=== PATIENT | female | born 1950 | race Caucasian/White ===

== ENCOUNTER 2020-05-06 04:26 | Emergency (ER) | payer MEDICARE, BC ==
--- NOTE | 2020-05-06 05:43 | EDM.PDOC ---
ED HPI GENERAL MEDICAL PROBLEM - General Chief Complaint: General Stated Complaint: WEAKNESS POST DIALYSIS Time Seen by Provider: 05/06/20 05:37 Source of Information: Reports: EMS History Limitations: Reports: No Limitations - History of Present Illness INITIAL COMMENTS - FREE TEXT/NARRATIVE: Pt is IDDM on dialysis through A/V access. States she has large hematoma at left arm access and has been feeling weak over past week. She was brought in by EMS accompanied by her who states he thinks she has become anemic again and is concerned her Hgb is below 6. Onset: Gradual Onset Date: 05/01/20 Duration: Day(s): (10 days, increasing weakness), Getting Worse Location: Reports: Upper Extremity, Left Quality: Reports: Ache Severity: Mild Improves with: Reports: Cold Therapy, Immobilization Worsens with: Reports: Movement - Related Data Allergies Allergy/AdvReac Type Severity Reaction Status Date / Time peanut Allergy Mild Other Verified 03/31/20 14:14 codeine Allergy Hives Verified 03/31/20 14:14 erythromycin lactobionate Allergy Hives Verified 03/31/20 14:14 [From Erythrocin] metformin AdvReac Other Verified 03/31/20 14:14 Home Meds: Home Meds traZODone 100 mg PO BEDTIME 03/20/16 [History] Allopurinol [Zyloprim] 100 mg PO DAILY tablet 11/21/16 [Rx] Levothyroxine Sodium [Levoxyl] 200 mcg PO ACBREAKFAST 12/29/16 [History] Aspirin [Halfprin] 81 mg PO DAILY tab.ec 01/16/17 [Rx] Darbepoetin William in [place] [Aranesp] 0 - 150 mcg SUBCUT Q14D 01/16/17 [Rx] Diclofenac Sodium [Voltaren 1% Gel] 0 - 1 gm TOP QID PRN #1 tube 01/16/17 [Rx] atorvaSTATin [Lipitor] 40 mg PO BEDTIME tablet 01/16/17 [Rx] Ferrous Sulfate 325 mg PO TIDMEALS 05/27/17 [History] Fish Oil/[place]-3 Fatty Acids [Fish Oil 1,000 MG] 1,000 mg PO DAILY 05/27/17 [History] Pramipexole [Mirapex] 0.75 mg PO QPM 05/27/17 [History] Zolpidem [Ambien] 5 mg PO BEDTIME 05/27/17 [History] busPIRone [Buspar] 15 mg PO QID 05/27/17 [History] Fluticasone Propionate [Flonase] 1 spray NS BID 08/10/17 [History] LORazepam [Ativan] 0.5 mg PO TID 08/10/17 [History] Nystatin [Nystatin Crm] 15 gm TOP BID PRN 08/10/17 [History] Ondansetron [Zofran] 4 mg PO Q6H PRN 08/10/17 [History] Acetaminophen [Tylenol Arthritis Pain] 650 mg PO Q8H PRN #30 tab.er 08/24/17 [Rx] Insulin Aspart [NovoLOG] 20 unit SUBCUT TIDAC 30 Days pen 08/24/17 [Rx] Furosemide [Lasix] 40 mg PO DAILY 11/09/17 [History] Multivit with Calcium,Iron,Min [Essential Daily] 1 tab PO DAILY 11/09/17 [History] Mupirocin Oint [Bactroban Oint] 0 gm TOP TID PRN 11/09/17 [History] Albuterol Sulfate [Proair Hfa] 2 puff IH QID PRN 01/07/18 [History] Budesonide/Formoterol Fumarate [Symbicort 160-4.5 Mcg Inhaler] 2 puff IH BID PRN 01/07/18 [History] Clopidogrel [Plavix] 75 mg PO DAILY 01/07/18 [History] Insulin Degludec [Tresiba Flextouch U-100] 36 units SUBCUT BEDTIME 01/07/18 [History] Midodrine 5 mg PO ASDIRECTED PRN 01/07/18 [History] Nitroglycerin [Nitrostat] 0.4 mg SL ASDIRECTED PRN 01/07/18 [History] polyethylene glycoL 3350 [MiraLAX] 17 gm PO BID PRN 01/07/18 [History] Isosorbide Mononitrate [Imdur] 30 mg PO DAILY 05/02/18 [History] Loratadine [Claritin] 10 mg PO DAILY 05/02/18 [History] Citalopram Hydrobromide [Celexa] 20 mg PO DAILY 07/18/19 [History] Benzonatate [Tessalon Perle] 100 mg PO TID PRN #21 capsule 09/11/19 [Rx] Darbepoetin William in [place] [Aranesp] 150 mcg IJ WEEKLY 03/09/20 [History] Past Medical History HEENT History: Reports: Epistaxis, Impaired Vision, Other (See Below) Other HEENT History: photosensitive, ringing in ears- chronic, cracking in ears currently Cardiovascular History: Reports: Afib, High Cholesterol, Heart Murmur, Hypertension, [place] Respiratory History: Reports: Asthma, Other (See Below), Sleep Apnea, SOB Other Respiratory History: doesn't use CPAP because of mask doesn't work - one cased scab on nose, one cased claustraphobia uses oxygen at home Gastrointestinal History: Reports: Chronic Diarrhea, GERD, Hemorrhoids Genitourinary History: Reports: Dialysis, Diabetic Nephropathy, Other (See Below), Renal Disease, UTI, Recurrent Other Genitourinary History: home dialysis 4 days per week 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: Musculoskeletal History: Reports: Arthritis, Back Pain, Chronic, Gout, Neck Pain, Chronic, Other (See Below) Other Musculoskeletal History: chronic shoulder pain, arthritis all over Neurological History: Reports: Migraines, Vertigo Psychiatric History: Reports: Anxiety, Depression, PTSD Endocrine/Metabolic History: Reports: Diabetes, Type II, Hypothyroidism, IDDM, Obesity/BMI 30+ Hematologic History: Reports: Anemia, B12 Deficiency, Idiopathic Thrombocytopenia, Other (See Below) Other Hematologic History: antibody in blood Immunologic History: Reports: Immunosuppression Oncologic (Cancer) History: Reports: None Dermatologic History: Reports: None - Infectious Disease History Infectious Disease History: Reports: Chicken Pox, Measles, Mumps, Rubella - Past Surgical History HEENT Surgical History: Reports: Cataract Surgery, Other (See Below) Cardiovascular Surgical History: Reports: Coronary Artery Bypass, Other (See Below) GI Surgical History: Reports: Appendectomy, Cholecystectomy Female Surgical History: Reports: Tubal Ligation Social & Family History - Family History Family Medical History: Noncontributory - Caffeine Use Caffeine Use: Reports: None Other Caffeine Use: chocolate ED ROS GENERAL - Review of Systems Review Of Systems: See Below Constitutional: Reports: Malaise, Weakness, Fatigue HEENT: Reports: No Symptoms Respiratory: Reports: Shortness of Breath Cardiovascular: Reports: Lightheadedness GI/Abdominal: Reports: No Symptoms : Reports: No Symptoms Musculoskeletal: Reports: Arm Pain Skin: Reports: Bruising, Wound (left arm, large hematoma over A/V fistula access) Neurological: Reports: No Symptoms Psychiatric: Reports: No Symptoms Hematologic/Lymphatic: Reports: Anemia Immunologic: Reports: No Symptoms ED EXAM, RENAL/ - Physical Exam Exam: See Below Text/Narrative:: Pt is IDDM on dialysis per standard routine. Last dialysis yesterday. Has hematoma left arm from yesterday's A/V fistula access. Has had about a 10 day episode of increasing weakness, similar to prior admission in [place] for transfusion. Pt has an Antibody K defician General Appearance: Alert, Mild Distress, Obese Ears: Normal External Exam Nose: Normal Inspection Throat/Mouth: Normal Inspection Head: Atraumatic Neck: Normal Inspection Respiratory/Chest: No Respiratory Distress, Lungs Clear, Normal Breath Sounds Cardiovascular: Normal Peripheral Pulses GI/Abdominal: Soft Extremities: Arm Pain, Other (left uppe arm A/V fistual access, hematoma) Skin Exam: Warm, Other (large hematoma over left arm A/V fistula access) Course - Vital Signs Last Recorded V/S: Last Vital Signs Temp 98.9 F 05/06/20 09:04 Pulse 80 05/06/20 10:42 Resp 20 05/06/20 10:42 BP 125/50 L 05/06/20 10:42 Pulse Ox 97 05/06/20 10:42 - Orders/Labs/Meds Labs: Laboratory Tests 05/06/20 05/06/20 Range/Units 05:40 05:40 WBC 4.5 D (4.0-11.0) K/uL RBC 2.09 L (3.80-5.80) M/uL Hgb 6.2 L* D (11.5-16.5) g/dL Hct 19.8 L* D (37.0-47.0) % MCV 95 (76-96) fL MCH 29.7 (27.0-32.0) pg MCHC 31.3 (31.0-35.0) g/dL RDW 16.7 H (11.0-16.0) % Plt Count 81 L D (150-500) K/uL MPV 12.2 H (6.0-10.0) fL Neut % (Auto) 79.1 H (45.0-70.0) % Lymph % (Auto) 10.8 L (20.0-40.0) % [place] % (Auto) 6.8 (3.0-10.0) % Eos % (Auto) 2.9 (1.0-5.0) % Baso % (Auto) 0.4 (0.0-0.5) % Neut # (Auto) 3.58 (2.00-7.50) K/uL Lymph # (Auto) 0.49 L (1.50-4.00) K/uL [place] # (Auto) 0.31 (0.20-0.80) K/uL Eos # (Auto) 0.13 (0.04-0.40) K/uL Baso # (Auto) 0.02 (0.02-0.10) K/uL Sodium 134 L (136-145) mmol/L Potassium 4.7 (3.5-5.1) mmol/L Chloride 98 (98-107) mmol/L Carbon Dioxide 24.7 (21.0-32.0) mmol/L Anion Gap 16.0 H (5.0-15.0) mmol/L BUN 68 H* D (8-26) mg/dL Creatinine 6.10 H* (0.55-1.02) mg/dL Est Cr Clr Drug Dosing TNP Estimated GFR (MDRD) 7 L (>60) MLS/MIN BUN/Creatinine Ratio 11.1 (6-25) Glucose 293 H (74-100) mg/dL Calcium 7.7 L (8.5-10.1) mg/dL Total Bilirubin 0.4 D (0.0-1.0) mg/dL AST 14 L (15-37) U/L ALT 24 (12-78) U/L Alkaline Phosphatase 153 H (46-116) U/L Total Protein 5.5 L (6.4-8.2) g/dL Albumin 3.0 L (3.4-5.0) g/dL Globulin 2.5 (2.2-4.2) g/dL Albumin/Globulin Ratio 1.2 (0.8-2.0) Meds: Medications Discontinued Medications Generic Name Dose Route Start Last Admin Trade Name Freq PRN Reason Stop Dose Admin Sodium Chloride 500 mls @ 1,000 mls/hr 05/06/20 06:00 05/06/20 06:03 Normal Saline IV 05/06/20 06:29 1,000 mls/hr ONETIME ONE Administration Sodium Chloride 10 ml 05/06/20 05:56 05/06/20 11:20 Saline Flush FLUSH 10 ml ASDIRECTED PRN Administration Keep Vein Open Departure - Departure Time of Disposition: 11:20 Disposition: DC/Tfer to Acute Hospital 02 Condition: Poor Clinical Impression: Dialysis patient, Shortness of breath, Chronic kidney disease with end stage renal failure on dialysis Anemia Qualifiers: Anemia type: other cause Other causes of anemia: chronic disease, other Qualified Code(s): D63.8 - Anemia in other chronic diseases classified elsewhere - Discharge Information *PRESCRIPTION DRUG MONITORING PROGRAM REVIEWED*: Not Applicable *COPY OF PRESCRIPTION DRUG MONITORING REPORT IN PATIENT SUGAR: Not Applicable Referrals: PCP,None [Primary Care Provider] - Forms: Interfacility Transfer OLGA
[2020-05-06] MEDS ORDERED: Sodium Chloride 0.9% 500 ML IV ONE (06:00)
[2020-05-06] MEDS: Sodium Chloride 0.9% 10 ML Syringe FLUSH PRN ×2 (06:56→11:20)
--- NOTE | 2020-05-06 10:13 | PCM.DCSUM1 ---
Discharge Summary - Hospital Course Free Text/Narrative:: Receiving facility has a bed for patient. Ambulance called for transport. - Discharge Data Discharge Date: 05/06/20 Discharge Disposition: DC/Tfer to Acute Hospital 02 Condition: Good - Referral to Home Health Primary Care Physician: PCP None - Discharge Plan *PRESCRIPTION DRUG MONITORING PROGRAM REVIEWED*: Not Applicable *COPY OF PRESCRIPTION DRUG MONITORING REPORT IN PATIENT SUGAR: Not Applicable Home Medications: Home Meds traZODone 100 mg PO BEDTIME 03/20/16 [History] Allopurinol [Zyloprim] 100 mg PO DAILY tablet 11/21/16 [Rx] Levothyroxine Sodium [Levoxyl] 200 mcg PO ACBREAKFAST 12/29/16 [History] Aspirin [Halfprin] 81 mg PO DAILY tab.ec 01/16/17 [Rx] Darbepoetin William in [place] [Aranesp] 0 - 150 mcg SUBCUT Q14D 01/16/17 [Rx] Diclofenac Sodium [Voltaren 1% Gel] 0 - 1 gm TOP QID PRN #1 tube 01/16/17 [Rx] atorvaSTATin [Lipitor] 40 mg PO BEDTIME tablet 01/16/17 [Rx] Ferrous Sulfate 325 mg PO TIDMEALS 05/27/17 [History] Fish Oil/[place]-3 Fatty Acids [Fish Oil 1,000 MG] 1,000 mg PO DAILY 05/27/17 [History] Pramipexole [Mirapex] 0.75 mg PO QPM 05/27/17 [History] Zolpidem [Ambien] 5 mg PO BEDTIME 05/27/17 [History] busPIRone [Buspar] 15 mg PO QID 05/27/17 [History] Fluticasone Propionate [Flonase] 1 spray NS BID 08/10/17 [History] LORazepam [Ativan] 0.5 mg PO TID 08/10/17 [History] Nystatin [Nystatin Crm] 15 gm TOP BID PRN 08/10/17 [History] Ondansetron [Zofran] 4 mg PO Q6H PRN 08/10/17 [History] Acetaminophen [Tylenol Arthritis Pain] 650 mg PO Q8H PRN #30 tab.er 08/24/17 [Rx] Insulin Aspart [NovoLOG] 20 unit SUBCUT TIDAC 30 Days pen 08/24/17 [Rx] Furosemide [Lasix] 40 mg PO DAILY 11/09/17 [History] Multivit with Calcium,Iron,Min [Essential Daily] 1 tab PO DAILY 11/09/17 [History] Mupirocin Oint [Bactroban Oint] 0 gm TOP TID PRN 11/09/17 [History] Albuterol Sulfate [Proair Hfa] 2 puff IH QID PRN 01/07/18 [History] Budesonide/Formoterol Fumarate [Symbicort 160-4.5 Mcg Inhaler] 2 puff IH BID PRN 01/07/18 [History] Clopidogrel [Plavix] 75 mg PO DAILY 01/07/18 [History] Insulin Degludec [Tresiba Flextouch U-100] 36 units SUBCUT BEDTIME 01/07/18 [History] Midodrine 5 mg PO ASDIRECTED PRN 01/07/18 [History] Nitroglycerin [Nitrostat] 0.4 mg SL ASDIRECTED PRN 01/07/18 [History] polyethylene glycoL 3350 [MiraLAX] 17 gm PO BID PRN 01/07/18 [History] Isosorbide Mononitrate [Imdur] 30 mg PO DAILY 05/02/18 [History] Loratadine [Claritin] 10 mg PO DAILY 05/02/18 [History] Citalopram Hydrobromide [Celexa] 20 mg PO DAILY 07/18/19 [History] Benzonatate [Tessalon Perle] 100 mg PO TID PRN #21 capsule 09/11/19 [Rx] Darbepoetin William in [place] [Aranesp] 150 mcg IJ WEEKLY 03/09/20 [History] Forms: Interfacility Transfer EMTALA Referrals: PCP,None [Primary Care Provider] - - Discharge Summary/Plan Comment DC Time >30 min.: Yes (waited for open bed in [place]) - Patient Data Vitals - Most Recent: Last Vital Signs Temp 98.9 F 05/06/20 09:04 Pulse 83 05/06/20 09:04 Resp 16 05/06/20 09:04 BP 117/52 L 05/06/20 09:04 Pulse Ox 97 05/06/20 09:04 Lab Results - Last 24 hrs: Laboratory Results - last 24 hr 05/06/20 05/06/20 Range/Units 05:40 05:40 WBC 4.5 D (4.0-11.0) K/uL RBC 2.09 L (3.80-5.80) M/uL Hgb 6.2 L* D (11.5-16.5) g/dL Hct 19.8 L* D (37.0-47.0) % MCV 95 (76-96) fL MCH 29.7 (27.0-32.0) pg MCHC 31.3 (31.0-35.0) g/dL RDW 16.7 H (11.0-16.0) % Plt Count 81 L D (150-500) K/uL MPV 12.2 H (6.0-10.0) fL Neut % (Auto) 79.1 H (45.0-70.0) % Lymph % (Auto) 10.8 L (20.0-40.0) % [place] % (Auto) 6.8 (3.0-10.0) % Eos % (Auto) 2.9 (1.0-5.0) % Baso % (Auto) 0.4 (0.0-0.5) % Neut # (Auto) 3.58 (2.00-7.50) K/uL Lymph # (Auto) 0.49 L (1.50-4.00) K/uL [place] # (Auto) 0.31 (0.20-0.80) K/uL Eos # (Auto) 0.13 (0.04-0.40) K/uL Baso # (Auto) 0.02 (0.02-0.10) K/uL Sodium 134 L (136-145) mmol/L Potassium 4.7 (3.5-5.1) mmol/L Chloride 98 (98-107) mmol/L Carbon Dioxide 24.7 (21.0-32.0) mmol/L Anion Gap 16.0 H (5.0-15.0) mmol/L BUN 68 H* D (8-26) mg/dL Creatinine 6.10 H* (0.55-1.02) mg/dL Est Cr Clr Drug Dosing TNP Estimated GFR (MDRD) 7 L (>60) MLS/MIN BUN/Creatinine Ratio 11.1 (6-25) Glucose 293 H (74-100) mg/dL Calcium 7.7 L (8.5-10.1) mg/dL Total Bilirubin 0.4 D (0.0-1.0) mg/dL AST 14 L (15-37) U/L ALT 24 (12-78) U/L Alkaline Phosphatase 153 H (46-116) U/L Total Protein 5.5 L (6.4-8.2) g/dL Albumin 3.0 L (3.4-5.0) g/dL Globulin 2.5 (2.2-4.2) g/dL Albumin/Globulin Ratio 1.2 (0.8-2.0) Med Orders - Current: Current Medications Sodium Chloride (Saline Flush) 10 ml FLUSH ASDIRECTED PRN PRN Reason: Keep Vein Open Discontinued Medications Sodium Chloride (Normal Saline) 500 mls @ 1,000 mls/hr IV ONETIME ONE Stop: 05/06/20 06:29 Last Admin: 05/06/20 06:03 Dose: 1,000 mls/hr Documented by:
== END 2020-05-06 11:20 ==
LOC: LB.ED 04:26
DX: I12.0 Hypertensive chronic kidney disease with stage 5 chronic kidney disease or end stage renal disease (principal); E11.22 Type 2 diabetes mellitus with diabetic chronic kidney disease; N18.6 End stage renal disease; Z99.2 Dependence on renal dialysis; R06.02 Shortness of breath; D63.1 Anemia in chronic kidney disease; L76.32 Postprocedural hematoma of skin and subcutaneous tissue following other procedure; I48.91 Unspecified atrial fibrillation; E78.00 Pure hypercholesterolemia, unspecified; I25.2 Old myocardial infarction; J45.909 Unspecified asthma, uncomplicated; K21.9 Gastro-esophageal reflux disease without esophagitis; F41.9 Anxiety disorder, unspecified; F32.9 Major depressive disorder, single episode, unspecified; E03.9 Hypothyroidism, unspecified; E11.40 Type 2 diabetes mellitus with diabetic neuropathy, unspecified; E66.9 Obesity, unspecified; Z88.5 Allergy status to narcotic agent; Z88.8 Allergy status to other drugs, medicaments and biological substances; Z88.1 Allergy status to other antibiotic agents; Z91.010 Allergy to peanuts; Z79.899 Other long term (current) drug therapy; Z79.02 Long term (current) use of antithrombotics/antiplatelets; Z79.82 Long term (current) use of aspirin; Z79.4 Long term (current) use of insulin
CPT/HCPCS: 36415; 80053; 85025; 96360; 96361; 99283; A0425; A0429; J7050; 99284

== ENCOUNTER 2020-05-20 06:22 | Emergency (ER) | payer MEDICARE, BC ==
--- NOTE | 2020-05-20 06:57 | EDM.PDOC ---
ED HPI GENERAL MEDICAL PROBLEM - General Chief Complaint: General Stated Complaint: SHUT FOR DIALYSIS DISLODGED Time Seen by Provider: 05/20/20 06:40 Source of Information: Reports: Patient, Family History Limitations: Reports: No Limitations - History of Present Illness INITIAL COMMENTS - FREE TEXT/NARRATIVE: Hemodialysis access on right chest became partially dislodged sometime last night while the patient was sleeping. Denies CP, SOB, fever, chills, or cough. Patient receives home dialysis, last was on Sunday. Patient recently had LUE fistula removed and the right chest access placed. Site is without dressing and it is unclear if and how far the cathether is dislodged. The area is red at entrance site and pink in surrounding tissue, this is a new dialysis cath so the patient is not sure what the site lookedlike prior to today. Onset: Today Location: Reports: Chest Associated Symptoms: Reports: No Other Symptoms - Related Data Allergies Allergy/AdvReac Type Severity Reaction Status Date / Time peanut Allergy Mild Other Verified 05/20/20 06:39 codeine Allergy Hives Verified 05/20/20 06:39 erythromycin lactobionate Allergy Hives Verified 05/20/20 06:39 [From Erythrocin] gabapentin Allergy Weakness Verified 05/20/20 06:39 metformin AdvReac Other Verified 05/20/20 06:39 Home Meds: Home Meds traZODone 100 mg PO BEDTIME 03/20/16 [History] Allopurinol [Zyloprim] 100 mg PO DAILY tablet 11/21/16 [Rx] Levothyroxine Sodium [Levoxyl] 200 mcg PO ACBREAKFAST 12/29/16 [History] Aspirin [Halfprin] 81 mg PO DAILY tab.ec 01/16/17 [Rx] Darbepoetin William in [place] [Aranesp] 0 - 150 mcg SUBCUT Q14D 01/16/17 [Rx] Diclofenac Sodium [Voltaren 1% Gel] 0 - 1 gm TOP QID PRN #1 tube 01/16/17 [Rx] atorvaSTATin [Lipitor] 40 mg PO BEDTIME tablet 01/16/17 [Rx] Ferrous Sulfate 325 mg PO TIDMEALS 05/27/17 [History] Fish Oil/[place]-3 Fatty Acids [Fish Oil 1,000 MG] 1,000 mg PO DAILY 05/27/17 [History] Pramipexole [Mirapex] 0.75 mg PO QPM 05/27/17 [History] Zolpidem [Ambien] 5 mg PO BEDTIME 05/27/17 [History] busPIRone [Buspar] 15 mg PO QID 05/27/17 [History] Fluticasone Propionate [Flonase] 1 spray NS BID 08/10/17 [History] LORazepam [Ativan] 0.5 mg PO TID 08/10/17 [History] Nystatin [Nystatin Crm] 15 gm TOP BID PRN 08/10/17 [History] Ondansetron [Zofran] 4 mg PO Q6H PRN 08/10/17 [History] Acetaminophen [Tylenol Arthritis Pain] 650 mg PO Q8H PRN #30 tab.er 08/24/17 [Rx] Insulin Aspart [NovoLOG] 20 unit SUBCUT TIDAC 30 Days pen 08/24/17 [Rx] Furosemide [Lasix] 40 mg PO DAILY 11/09/17 [History] Multivit with Calcium,Iron,Min [Essential Daily] 1 tab PO DAILY 11/09/17 [History] Mupirocin Oint [Bactroban Oint] 0 gm TOP TID PRN 11/09/17 [History] Albuterol Sulfate [Proair Hfa] 2 puff IH QID PRN 01/07/18 [History] Budesonide/Formoterol Fumarate [Symbicort 160-4.5 Mcg Inhaler] 2 puff IH BID PRN 01/07/18 [History] Clopidogrel [Plavix] 75 mg PO DAILY 01/07/18 [History] Insulin Degludec [Tresiba Flextouch U-100] 36 units SUBCUT BEDTIME 01/07/18 [History] Midodrine 5 mg PO ASDIRECTED PRN 01/07/18 [History] Nitroglycerin [Nitrostat] 0.4 mg SL ASDIRECTED PRN 01/07/18 [History] polyethylene glycoL 3350 [MiraLAX] 17 gm PO BID PRN 01/07/18 [History] Isosorbide Mononitrate [Imdur] 30 mg PO DAILY 05/02/18 [History] Loratadine [Claritin] 10 mg PO DAILY 05/02/18 [History] Citalopram Hydrobromide [Celexa] 20 mg PO DAILY 07/18/19 [History] Benzonatate [Tessalon Perle] 100 mg PO TID PRN #21 capsule 09/11/19 [Rx] Darbepoetin William in [place] [Aranesp] 150 mcg IJ WEEKLY 03/09/20 [History] Past Medical History HEENT History: Reports: Epistaxis, Impaired Vision, Other (See Below) Other HEENT History: photosensitive, ringing in ears- chronic, cracking in ears currently Cardiovascular History: Reports: Afib, High Cholesterol, Heart Murmur, Hypertension, [place] Respiratory History: Reports: Asthma, Other (See Below), Sleep Apnea, SOB Other Respiratory History: doesn't use CPAP because of mask doesn't work - one cased scab on nose, one cased claustraphobia uses oxygen at home Gastrointestinal History: Reports: Chronic Diarrhea, GERD, Hemorrhoids Genitourinary History: Reports: Dialysis, Diabetic Nephropathy, Other (See Below), Renal Disease, UTI, Recurrent Other Genitourinary History: home dialysis 4 days per week 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: Musculoskeletal History: Reports: Arthritis, Back Pain, Chronic, Gout, Neck Pain, Chronic, Other (See Below) Other Musculoskeletal History: chronic shoulder pain, arthritis all over Neurological History: Reports: Migraines, Vertigo Psychiatric History: Reports: Anxiety, Depression, PTSD Endocrine/Metabolic History: Reports: Diabetes, Type II, Hypothyroidism, IDDM, Obesity/BMI 30+ Hematologic History: Reports: Anemia, B12 Deficiency, Idiopathic Thrombocytopenia, Other (See Below) Other Hematologic History: antibody in blood Immunologic History: Reports: Immunosuppression Oncologic (Cancer) History: Reports: None Dermatologic History: Reports: None - Infectious Disease History Infectious Disease History: Reports: Chicken Pox, Measles, Mumps, Rubella - Past Surgical History HEENT Surgical History: Reports: Cataract Surgery, Other (See Below) Cardiovascular Surgical History: Reports: Coronary Artery Bypass, Other (See Below) GI Surgical History: Reports: Appendectomy, Cholecystectomy Female Surgical History: Reports: Tubal Ligation Social & Family History - Family History Family Medical History: Noncontributory - Caffeine Use Caffeine Use: Reports: None Other Caffeine Use: chocolate ED ROS GENERAL - Review of Systems Review Of Systems: See Below Constitutional: Reports: No Symptoms HEENT: Reports: No Symptoms Respiratory: Reports: No Symptoms Cardiovascular: Reports: No Symptoms GI/Abdominal: Reports: No Symptoms Musculoskeletal: Reports: Arm Pain (RUE from fistula removal) Skin: Reports: No Symptoms Hematologic/Lymphatic: Reports: Other (rare antibody in blood, required transport to [place] for transfusion in the past) ED EXAM, GENERAL - Physical Exam Exam: See Below Exam Limited By: No Limitations General Appearance: Alert, No Apparent Distress Throat/Mouth: Normal Voice Head: Atraumatic Neck: Normal Inspection Respiratory/Chest: No Respiratory Distress, Normal Breath Sounds Cardiovascular: Normal Peripheral Pulses, Regular Rate, Rhythm, No JVD, No Murmur Peripheral Pulses: 2+: Dorsalis Pedis (L), Dorsalis Pedis (R), 3+: Radial (L), Radial (R) GI/Abdominal: Normal Bowel Sounds Extremities: Pedal Edema (Patient states this is her baseline, no increased edema.), Arm Pain Neurological: Alert, Oriented, Normal Cognition Psychiatric: Normal Affect, Normal Mood Skin Exam: Warm, Dry, Intact, Other (access site without drainage or redness) Course - Vital Signs Last Recorded V/S: Last Vital Signs Temp 98.2 F 05/20/20 09:16 Pulse 80 05/20/20 09:16 Resp 16 05/20/20 09:16 BP 116/53 L 05/20/20 09:16 Pulse Ox 98 05/20/20 09:16 - Orders/Labs/Meds Labs: Laboratory Tests 05/20/20 05/20/20 05/20/20 Range/Units 07:24 08:00 08:00 WBC 5.8 D (4.0-11.0) K/uL RBC 3.08 L (3.80-5.80) M/uL Hgb 9.3 L D (11.5-16.5) g/dL Hct 30.4 L D (37.0-47.0) % MCV 99 H (76-96) fL MCH 30.2 (27.0-32.0) pg MCHC 30.6 L (31.0-35.0) g/dL RDW 16.6 H (11.0-16.0) % Plt Count 76 L (150-500) K/uL Neut % (Auto) 74.7 H (45.0-70.0) % Lymph % (Auto) 11.0 L (20.0-40.0) % [place] % (Auto) 6.9 (3.0-10.0) % Eos % (Auto) 6.9 H (1.0-5.0) % Baso % (Auto) 0.5 (0.0-0.5) % Neut # (Auto) 4.35 (2.00-7.50) K/uL Lymph # (Auto) 0.64 L (1.50-4.00) K/uL [place] # (Auto) 0.40 (0.20-0.80) K/uL Eos # (Auto) 0.40 (0.04-0.40) K/uL Baso # (Auto) 0.03 (0.02-0.10) K/uL Sodium 136 (136-145) mmol/L Potassium 5.4 H (3.5-5.1) mmol/L Chloride 100 (98-107) mmol/L Carbon Dioxide 25.6 (21.0-32.0) mmol/L Anion Gap 15.8 H (5.0-15.0) mmol/L BUN 45 H D (8-26) mg/dL Creatinine 7.56 H* D (0.55-1.02) mg/dL Est Cr Clr Drug Dosing 6.76 mL/min Estimated GFR (MDRD) 5 L (>60) MLS/MIN BUN/Creatinine Ratio 6.0 (6-25) Glucose 149 H D (74-100) mg/dL Lactic Acid 0.8 (0.4-2.0) mmol/L Calcium 8.6 (8.5-10.1) mg/dL Total Bilirubin 0.4 (0.0-1.0) mg/dL AST 17 (15-37) U/L ALT 13 (12-78) U/L Alkaline Phosphatase 199 H (46-116) U/L C-Reactive Protein 3.3 H (0.0-3.0) mg/L Total Protein 6.7 (6.4-8.2) g/dL Albumin 3.3 L (3.4-5.0) g/dL Globulin 3.4 (2.2-4.2) g/dL Albumin/Globulin Ratio 1.0 (0.8-2.0) Meds: Medications Discontinued Medications Generic Name Dose Route Start Last Admin Trade Name Rickey PRN Reason Stop Dose Admin Vancomycin HCl 0 gm 05/20/20 07:24 05/20/20 08:50 Vancomycin IV 05/20/20 07:25 1,500 gm .PHARMACY TO DOSE ONE Administration Departure - Departure Time of Disposition: 09:30 Disposition: DC/Tfer to Acute Hospital 02 Condition: Good Clinical Impression: Complications, dialysis, catheter, mechanical Qualifiers: Encounter type: initial encounter Qualified Code(s): T82.49XA - Other complication of vascular dialysis catheter, initial encounter - Discharge Information *PRESCRIPTION DRUG MONITORING PROGRAM REVIEWED*: Not Applicable *COPY OF PRESCRIPTION DRUG MONITORING REPORT IN PATIENT SUGAR: Not Applicable Referrals: PCP,None [Primary Care Provider] - Forms: ED Department Discharge Additional Instructions: Patient transfered to [place] [facility], accepted by Dr. Okeefe. Sepsis Event Note (ED) - Evaluation Sepsis Screening Result: No Definite Risk - Assessment/Plan Plan: Spoke with Dr. 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 Then I spoke with Dr. Garrison from surgery, he would like the patient transfered to the ER in [place], Dr. Okeefe from the ER in [place] will accept patient and requesting labs and chest xray prior to transport. Patient and aware and agreeable to this plan.
--- NOTE | 2020-05-20 08:33 | CR ---
DATE OF SERVICE: 05/20/2020 CLINICAL DATA: Possible dislodged/infected dialysis cath right up. AP CHEST: Comparison is made to a prior exam dated 09/10/2019. Patient has taken a very poor inspiration. There is a right-sided central venous catheter in place with its distal tip in the region of the superior vena cava. The patient is status post median sternotomy. The heart is enlarged. The aorta is ectatic. The pulmonary vasculature is prominent suggesting pulmonary venous congestion. This may be related to the poor inspiration. There are densities in both lower lungs consistent with infiltrate or atelectasis. Pneumonia should be considered. The exam is otherwise unchanged from the prior. [id number] [facility]
[2020-05-20] MEDS: Vancomycin 1 GM SDV IV ONE (08:50)
[2020-05-20 09:17] VITALS: BP 116/53; PULSE 80
== END 2020-05-20 09:29 ==
LOC: LB.ED 06:22
DX: T82.49XA Other complication of vascular dialysis catheter, initial encounter (principal); I10 Essential (primary) hypertension; E78.00 Pure hypercholesterolemia, unspecified; I48.91 Unspecified atrial fibrillation; J45.909 Unspecified asthma, uncomplicated; E11.21 Type 2 diabetes mellitus with diabetic nephropathy; F41.9 Anxiety disorder, unspecified; F32.9 Major depressive disorder, single episode, unspecified; E66.9 Obesity, unspecified; E03.9 Hypothyroidism, unspecified; G43.909 Migraine, unspecified, not intractable, without status migrainosus; M10.9 Gout, unspecified; Z90.49 Acquired absence of other specified parts of digestive tract; Z98.51 Tubal ligation status; Z79.4 Long term (current) use of insulin; Z88.5 Allergy status to narcotic agent; Z91.010 Allergy to peanuts; Z88.1 Allergy status to other antibiotic agents; Z88.8 Allergy status to other drugs, medicaments and biological substances; Z79.82 Long term (current) use of aspirin; Z79.899 Other long term (current) drug therapy; Z79.02 Long term (current) use of antithrombotics/antiplatelets
CPT/HCPCS: 36415; 71045; 80053; 83605; 84145; 85025; 86140; 87040; 87077; 87186; 96365; 99285-25; A0425; A0429; J3370; J7050

== ENCOUNTER 2020-06-30 10:46 | Emergency (ER) | payer MEDICARE, BC ==
[2020-06-30] MEDS ORDERED: Albuterol/Ipratropium 3.0-0.5 MG/3 ML Neb Soln NEB PRN (11:30)
[2020-06-30] MEDS ORDERED: methylPREDNISolone Sodium Succinate 40 MG/1 ML SDV ONE (11:53)
--- NOTE | 2020-06-30 13:21 | EDM.PDOC ---
ED HPI GENERAL MEDICAL PROBLEM - General Chief Complaint: General Stated Complaint: WEAK, TROUBLE BREATHING Time Seen by Provider: 06/30/20 12:00 Source of Information: Reports: Patient History Limitations: Reports: No Limitations - History of Present Illness INITIAL COMMENTS - FREE TEXT/NARRATIVE: Patient is a 69 y/o female with PMHx of renal insufficiency (hemo-dialysis yeste rday and still urinates), CHF, anemia, on 2 L oxygen at home, who presents for cough x 1 month and weakness/shortness of breath x 1 week. No fever, no N/V/D, no headaches, no dizziness, no bloody stools, no chest pain. She describes the weakness as generalized and unable to stand or ambulate because of it. Duration: Week(s): (1 week) Improves with: Reports: None Worsens with: Reports: Other (Laying down) Associated Symptoms: Reports: Cough, Shortness of Breath, Weakness - Related Data Allergies Allergy/AdvReac Type Severity Reaction Status Date / Time peanut Allergy Mild Other Verified 05/20/20 06:39 codeine Allergy Hives Verified 05/20/20 06:39 erythromycin lactobionate Allergy Hives Verified 05/20/20 06:39 [From Erythrocin] gabapentin Allergy Weakness Verified 05/20/20 06:39 metformin AdvReac Other Verified 05/20/20 06:39 Home Meds: Home Meds traZODone 100 mg PO BEDTIME 03/20/16 [History] Allopurinol [Zyloprim] 100 mg PO DAILY tablet 11/21/16 [Rx] Levothyroxine Sodium [Levoxyl] 200 mcg PO ACBREAKFAST 12/29/16 [History] Aspirin [Halfprin] 81 mg PO DAILY tab.ec 01/16/17 [Rx] Darbepoetin William in [place]ys[place]bat [Aranesp] 0 - 150 mcg SUBCUT Q14D 01/16/17 [Rx] Diclofenac Sodium [Voltaren 1% Gel] 0 - 1 gm TOP QID PRN #1 tube 01/16/17 [Rx] atorvaSTATin [Lipitor] 40 mg PO BEDTIME tablet 01/16/17 [Rx] Ferrous Sulfate 325 mg PO TIDMEALS 05/27/17 [History] Fish Oil/Celestine-3 Fatty Acids [Fish Oil 1,000 MG] 1,000 mg PO DAILY 05/27/17 [History] Pramipexole [Mirapex] 0.75 mg PO QPM 05/27/17 [History] Zolpidem [Ambien] 5 mg PO BEDTIME 05/27/17 [History] busPIRone [Buspar] 15 mg PO QID 05/27/17 [History] Fluticasone Propionate [Flonase] 1 spray NS BID 08/10/17 [History] LORazepam [Ativan] 0.5 mg PO TID 08/10/17 [History] Nystatin [Nystatin Crm] 15 gm TOP BID PRN 08/10/17 [History] Ondansetron [Zofran] 4 mg PO Q6H PRN 08/10/17 [History] Acetaminophen [Tylenol Arthritis Pain] 650 mg PO Q8H PRN #30 tab.er 08/24/17 [Rx] Insulin Aspart [NovoLOG] 20 unit SUBCUT TIDAC 30 Days pen 08/24/17 [Rx] Furosemide [Lasix] 40 mg PO DAILY 11/09/17 [History] Multivit with Calcium,Iron,Min [Essential Daily] 1 tab PO DAILY 11/09/17 [History] Mupirocin Oint [Bactroban Oint] 0 gm TOP TID PRN 11/09/17 [History] Albuterol Sulfate [Proair Hfa] 2 puff IH QID PRN 01/07/18 [History] Budesonide/Formoterol Fumarate [Symbicort 160-4.5 Mcg Inhaler] 2 puff IH BID PRN 01/07/18 [History] Clopidogrel [Plavix] 75 mg PO DAILY 01/07/18 [History] Insulin Degludec [Tresiba Flextouch U-100] 36 units SUBCUT BEDTIME 01/07/18 [History] Midodrine 5 mg PO ASDIRECTED PRN 01/07/18 [History] Nitroglycerin [Nitrostat] 0.4 mg SL ASDIRECTED PRN 01/07/18 [History] polyethylene glycoL 3350 [MiraLAX] 17 gm PO BID PRN 01/07/18 [History] Isosorbide Mononitrate [Imdur] 30 mg PO DAILY 05/02/18 [History] Loratadine [Claritin] 10 mg PO DAILY 05/02/18 [History] Citalopram Hydrobromide [Celexa] 20 mg PO DAILY 07/18/19 [History] Benzonatate [Tessalon Perle] 100 mg PO TID PRN #21 capsule 09/11/19 [Rx] Darbepoetin William in [place]ysorbat [Aranesp] 150 mcg IJ WEEKLY 03/09/20 [History] Past Medical History HEENT History: Reports: Epistaxis, Impaired Vision, Other (See Below) Other HEENT History: photosensitive, ringing in ears- chronic, cracking in ears currently Cardiovascular History: Reports: Afib, High Cholesterol, Heart Murmur, [place], [place] Respiratory History: Reports: Asthma, Other (See Below), Sleep Apnea, SOB Other Respiratory History: doesn't use CPAP because of mask doesn't work - one cased scab on nose, one cased claustraphobia uses oxygen at home Gastrointestinal History: Reports: Chronic Diarrhea, GERD, Hemorrhoids Genitourinary History: Reports: Dialysis, Diabetic Nephropathy, Other (See Below), Renal Disease, UTI, Recurrent Other Genitourinary History: home dialysis 4 days per week CLIENT SUPPORT CONSULTANT History: Reports: Musculoskeletal History: Reports: Arthritis, Back Pain, Chronic, Gout, Neck Pain, Chronic, Other (See Below) Other Musculoskeletal History: chronic shoulder pain, arthritis all over Neurological History: Reports: Migraines, Vertigo Psychiatric History: Reports: Anxiety, Depression, PTSD Endocrine/Metabolic History: Reports: Diabetes, Type II, Hypothyroidism, IDDM, Obesity/BMI 30+ Hematologic History: Reports: Anemia, B12 Deficiency, Idiopathic Thrombocytopenia, Other (See Below) Other Hematologic History: antibody in blood Immunologic History: Reports: Immunosuppression Oncologic (Cancer) History: Reports: None Dermatologic History: Reports: None - Infectious Disease History Infectious Disease History: Reports: Chicken Pox, Measles, Mumps, Rubella - Past Surgical History HEENT Surgical History: Reports: Cataract Surgery, Other (See Below) Cardiovascular Surgical History: Reports: Coronary Artery Bypass, Other (See Below) GI Surgical History: Reports: Appendectomy, Cholecystectomy Female Surgical History: Reports: Tubal Ligation Social & Family History - Family History Family Medical History: Noncontributory - Tobacco Use Smoking Status *Q: Former Smoker Used Tobacco, but Quit: No - Caffeine Use Caffeine Use: Reports: Coffee Other Caffeine Use: chocolate - Recreational Drug Use Recreational Drug Use: No ED ROS GENERAL - Review of Systems Review Of Systems: See Below Constitutional: Reports: Weakness HEENT: Reports: No Symptoms Respiratory: Reports: Shortness of Breath, Cough Cardiovascular: Reports: No Symptoms Endocrine: Reports: No Symptoms GI/Abdominal: Reports: No Symptoms : Reports: No Symptoms Musculoskeletal: Reports: No Symptoms Skin: Reports: No Symptoms Neurological: Reports: No Symptoms ED EXAM, GENERAL - Physical Exam Exam: See Below Exam Limited By: No Limitations General Appearance: Alert, No Apparent Distress Nose: Normal Inspection, Normal Mucosa Throat/Mouth: Normal Inspection, Normal Lips, Normal Voice, No Airway Compromise Head: Atraumatic, Normocephalic Neck: Normal Inspection, Supple, Non-Tender, Full Range of Motion Respiratory/Chest: No Respiratory Distress, No Accessory Muscle Use, Chest Non- Tender, Decreased Breath Sounds, Crackles, Rhonchi Cardiovascular: Normal Peripheral Pulses, Regular Rate, Rhythm, Other (2+ pitting edema bilateral lower extremities; right-sided port) GI/Abdominal: Normal Bowel Sounds, Soft, Non-Tender, No Distention Extremities: Normal Inspection, Normal Capillary Refill, Pedal Edema, Other (right upper extremity fistula) Neurological: Alert, Oriented, Normal Cognition Skin Exam: Warm, Dry EKG INTERPRETATION EKG Date: 06/30/20 Time: 11:58 Rhythm: NSR Rate (Beats/Min): 83 Ball: Normal P-Wave: Present QRS: RBBB ST-T: Normal QT: Normal Course - Vital Signs Text/Narrative:: Patient with elevated BNP, TSH, and creatinine. Anemia (Hgb 7.1). She wants to go to [place], [place] for her blood transfusion (she states she has had issues at other facilities getting the right blood type). Discussed with hospitalist, Dr. Johnson, and will transport patient there by ground. Last Recorded V/S: Last Vital Signs Temp 36.3 C 06/30/20 11:08 Pulse 88 06/30/20 11:08 Resp 20 06/30/20 11:08 BP 148/65 H 06/30/20 11:08 Pulse Ox 94 L 06/30/20 11:08 - Orders/Labs/Meds Orders: Active Orders 24 hr Category Date Time Status EKG Documentation Completion [RC] ASDIRECTED Care 06/30/20 11:28 Active RT Aerosol Therapy [RC] ASDIRECTED Care 06/30/20 11:31 Active CXR [Chest 1V Frontal] [CR] Stat Exams 06/30/20 11:28 Taken Albuterol/Ipratropium [DuoNeb 3.0-0.5 MG/3 ML] Med 06/30/20 11:30 Ordered 3 ml NEB Q2H PRN methylPREDNISolone Sod Succ [SOLU-MedroL] Med 06/30/20 11:29 Stat 80 mg IV NOW STA Medication Orders Albuterol/Ipratropium (Duoneb 3.0-0.5 Mg/3 Ml) 3 ml NEB Q2H PRN PRN Reason: Shortness of Breath Methylprednisolone Sodium Succinate (Solu-Medrol) 80 mg IV NOW STA Stop: 06/30/20 11:30 Labs: Laboratory Tests 06/30/20 06/30/20 06/30/20 Range/Units 10:07 11:16 11:45 WBC 6.3 (4.0-11.0) K/uL RBC 2.36 L (3.80-5.80) M/uL Hgb 7.1 L D (11.5-16.5) g/dL Hct 21.7 L D (37.0-47.0) % MCV 92 (76-96) fL MCH 30.1 (27.0-32.0) pg MCHC 32.7 (31.0-35.0) g/dL RDW 15.6 (11.0-16.0) % Plt Count 77 L (150-500) K/uL Neut % (Auto) 84.7 H (45.0-70.0) % Lymph % (Auto) 8.8 L (20.0-40.0) % [place] % (Auto) 5.4 (3.0-10.0) % Eos % (Auto) 0.8 L (1.0-5.0) % Baso % (Auto) 0.3 (0.0-0.5) % Neut # (Auto) 5.31 (2.00-7.50) K/uL Lymph # (Auto) 0.55 L (1.50-4.00) K/uL [place] # (Auto) 0.34 (0.20-0.80) K/uL Eos # (Auto) 0.05 (0.04-0.40) K/uL Baso # (Auto) 0.02 (0.02-0.10) K/uL Sodium (136-145) mmol/L Potassium (3.5-5.1) mmol/L Chloride (98-107) mmol/L Carbon Dioxide (21.0-32.0) mmol/L Anion Gap (5.0-15.0) mmol/L BUN (8-26) mg/dL Creatinine (0.55-1.02) mg/dL Est Cr Clr Drug Dosing Estimated GFR (MDRD) (>60) MLS/MIN BUN/Creatinine Ratio (6-25) Glucose (74-100) mg/dL POC Glucose 184 H (74-110) mg/dL Calcium (8.5-10.1) mg/dL Total Bilirubin (0.0-1.0) mg/dL AST (15-37) U/L ALT (12-78) U/L Alkaline Phosphatase (46-116) U/L Troponin I (0.000-0.060) ng/mL B-Natriuretic Peptide (0-125) pg/mL Total Protein (6.4-8.2) g/dL Albumin (3.4-5.0) g/dL Globulin (2.2-4.2) g/dL Albumin/Globulin Ratio (0.8-2.0) TSH, Ultra Sensitive (0.358-3.740) uIU/mL SARS CoV-2 RNA Rapid CAROLE Negative 06/30/20 Range/Units 11:45 WBC (4.0-11.0) K/uL RBC (3.80-5.80) M/uL Hgb (11.5-16.5) g/dL Hct (37.0-47.0) % MCV (76-96) fL MCH (27.0-32.0) pg MCHC (31.0-35.0) g/dL RDW (11.0-16.0) % Plt Count (150-500) K/uL Neut % (Auto) (45.0-70.0) % Lymph % (Auto) (20.0-40.0) % [place] % (Auto) (3.0-10.0) % Eos % (Auto) (1.0-5.0) % Baso % (Auto) (0.0-0.5) % Neut # (Auto) (2.00-7.50) K/uL Lymph # (Auto) (1.50-4.00) K/uL [place] # (Auto) (0.20-0.80) K/uL Eos # (Auto) (0.04-0.40) K/uL Baso # (Auto) (0.02-0.10) K/uL Sodium 134 L (136-145) mmol/L Potassium 3.7 D (3.5-5.1) mmol/L Chloride 98 (98-107) mmol/L Carbon Dioxide 22.9 (21.0-32.0) mmol/L Anion Gap 16.8 H (5.0-15.0) mmol/L BUN 46 H (8-26) mg/dL Creatinine 5.61 H* D (0.55-1.02) mg/dL Est Cr Clr Drug Dosing TNP Estimated GFR (MDRD) 8 L (>60) MLS/MIN BUN/Creatinine Ratio 8.2 (6-25) Glucose 172 H (74-100) mg/dL POC Glucose (74-110) mg/dL Calcium 8.7 (8.5-10.1) mg/dL Total Bilirubin 0.8 D (0.0-1.0) mg/dL AST 27 (15-37) U/L ALT 27 (12-78) U/L Alkaline Phosphatase 264 H (46-116) U/L Troponin I 0.039 D (0.000-0.060) ng/mL B-Natriuretic Peptide 96083 H D (0-125) pg/mL Total Protein 6.6 (6.4-8.2) g/dL Albumin 3.2 L (3.4-5.0) g/dL Globulin 3.4 (2.2-4.2) g/dL Albumin/Globulin Ratio 0.9 (0.8-2.0) TSH, Ultra Sensitive 4.795 H D (0.358-3.740) uIU/mL SARS CoV-2 RNA Rapid CAROLE Meds: Medications Generic Name Dose Route Start Last Admin Trade Name Freq PRN Reason Stop Dose Admin Albuterol/Ipratropium 3 ml 06/30/20 11:30 Duoneb 3.0-0.5 Mg/3 Ml NEB Q2H PRN Shortness of Breath Methylprednisolone Sodium Succinate 80 mg 06/30/20 11:29 Solu-Medrol IV 06/30/20 11:30 NOW STA Discontinued Medications Generic Name Dose Route Start Last Admin Trade Name Rickey PRN Reason Stop Dose Admin Methylprednisolone Sodium Succinate Confirm 06/30/20 11:53 06/30/20 11:48 Solu-Medrol Administered 06/30/20 11:54 80 mg Dose Administration 80 mg .ROUTE .STK-MED ONE Departure - Departure Time of Disposition: 13:35 Disposition: DC/Tfer to Other 70 Condition: Fair Clinical Impression: CHF, Congestive heart failure - Discharge Information *PRESCRIPTION DRUG MONITORING PROGRAM REVIEWED*: Not Applicable *COPY OF PRESCRIPTION DRUG MONITORING REPORT IN PATIENT SUGAR: Not Applicable Sepsis Event Note (ED) - Evaluation Sepsis Screening Result: No Definite Risk - Focused Exam Vital Signs: Vital Signs Temp Pulse Resp BP Pulse Ox 06/30/20 11:08 36.3 C 88 20 148/65 H 94 L - My Orders Last 24 Hours: My Active Orders 06/30/20 11:28 EKG Documentation Completion [RC] ASDIRECTED CXR [Chest 1V Frontal] [CR] Stat 06/30/20 11:29 methylPREDNISolone Sod Succ [SOLU-MedroL] 80 mg IV NOW STA 06/30/20 11:30 Albuterol/Ipratropium [DuoNeb 3.0-0.5 MG/3 ML] 3 ml NEB Q2H PRN 06/30/20 11:31 RT Aerosol Therapy [RC] ASDIRECTED - Assessment/Plan Last 24 Hours: My Active Orders 06/30/20 11:28 EKG Documentation Completion [RC] ASDIRECTED CXR [Chest 1V Frontal] [CR] Stat 06/30/20 11:29 methylPREDNISolone Sod Succ [SOLU-MedroL] 80 mg IV NOW STA 06/30/20 11:30 Albuterol/Ipratropium [DuoNeb 3.0-0.5 MG/3 ML] 3 ml NEB Q2H PRN 06/30/20 11:31 RT Aerosol Therapy [RC] ASDIRECTED
--- NOTE | 2020-07-01 07:46 | CR ---
DATE OF SERVICE: 06/30/20 CLINICAL DATA: weakness AP PORTABLE CHEST: Comparison is made to a prior exam dated 05/20/20. The patient has taken a poor inspiration. The right-sided central venous catheter is unchanged in position. The patient is status post median sternotomy. The heart remains enlarged, unchanged. The pulmonary vasculature remains prominent, unchanged. There are persistent densities in both lung bases consistent with basilar atelectasis or infiltrates. No pneumothorax. No pleural effusions. [id number] MTDD
== END 2020-06-30 14:45 | disposition other institution (70) ==
LOC: LB.ED 10:46
DX: I11.0 Hypertensive heart disease with heart failure (principal); I50.9 Heart failure, unspecified; I25.2 Old myocardial infarction; I48.91 Unspecified atrial fibrillation; E78.00 Pure hypercholesterolemia, unspecified; J45.909 Unspecified asthma, uncomplicated; E11.21 Type 2 diabetes mellitus with diabetic nephropathy; F41.9 Anxiety disorder, unspecified; F32.9 Major depressive disorder, single episode, unspecified; E03.9 Hypothyroidism, unspecified; E66.9 Obesity, unspecified; M10.9 Gout, unspecified; M19.90 Unspecified osteoarthritis, unspecified site; Z91.010 Allergy to peanuts; Z88.5 Allergy status to narcotic agent; Z88.1 Allergy status to other antibiotic agents; Z88.8 Allergy status to other drugs, medicaments and biological substances; Z79.4 Long term (current) use of insulin; Z79.02 Long term (current) use of antithrombotics/antiplatelets; Z79.82 Long term (current) use of aspirin; Z79.899 Other long term (current) drug therapy; Z95.1 Presence of aortocoronary bypass graft; Z90.49 Acquired absence of other specified parts of digestive tract; Z87.891 Personal history of nicotine dependence; Z20.828 Contact with and (suspected) exposure to other viral communicable diseases
CPT/HCPCS: 36415; 71045; 80053; 82962; 83880; 84443; 84484; 85025; 93005; 96374; 99285; J2920; U0002